=== PATIENT | female | born 1965 | race African-American/Black ===

== ENCOUNTER → 2017-10-29 16:35 | Outpatient (CLI) | payer BC ==
[~2017-10-29 16:35] MED LIST: MULTIPLE VITAMI1 TA1; ZESTORETIC 20/21 TAB PO
[2017-11-28 07:32] VITALS: BMI 31.1
== END | disposition home or self-care (01) ==
LOC: D.RAD 16:35
DX: R10.2 Pelvic and perineal pain (principal)

== ENCOUNTER 2017-11-28 07:09 | Day surgery (SDC) | payer BC ==
[2017-11-26 14:52] LABS: BASOPHILS 0.8 % (0-2); EOSINOPHILS 4.9 % (0-7); HEMATOCRIT 34.2 % (36.0-48.0); HEMOGLOBIN 11.3 g/dL (12-16); IMMATURE GRANULOCYTES 0.2 % (0-5); LYMPHOCYTES 42.8 % (15-50); MCH 29.7 pg (26.0-34.0); MONOCYTES 6.6 % (2-11); NEUTROPHILS 44.7 % (40-80); PLATELET COUNT 263 10x3/uL (130-400); RDW 13.1 % (11.5-14.5); WBC 5.9 10x3/uL (4.8-10.8)
[~2017-11-28] VITALS: Ht 165.1 cm; Wt 84.8 kg
--- NOTE | ~2017-11-28 | OP ---
PATIENT NAME: JAMES NEAL MEDICAL RECORD: [id number] :67 LOCATION:D.OPS ADMISSION DATE: SURGEON: EMMANUEL HAWKINS MD DATE OF OPERATION: 11/28/2017 PREOPERATIVE DIAGNOSIS: Menorrhagia/postmenopausal bleeding. POSTOPERATIVE DIAGNOSIS: Menorrhagia/postmenopausal bleeding. PROCEDURE: Hysteroscopy, dilation and curettage. SURGEON: Emmanuel Hawkins ESTIMATED BLOOD LOSS: Minimal. INTRAVENOUS FLUIDS: Per anesthesia record. HYSTEROSCOPIC FLUID LOSS: Less than 100 cc of 0.9 normal saline. SPECIMENS: Endometrial curettings. COMPLICATIONS: None apparent. FINDINGS: 1. Grossly normal-appearing endometrial cavity. 2. Grossly normal-appearing cervix and vagina. 3. Grossly normal-appearing external genitalia. PROCEDURE: The patient was taken to the operating room, where general anesthesia was achieved without any difficulty. The patient was prepped and draped in normal sterile fashion in the dorsal lithotomy position in the [facility]. The bladder was drained of approximately 50 cc of clear yellow urine and a Graves speculum was then placed in the vagina. The anterior lip of the cervix was then grasped with a single-tooth tenaculum on its anterior lip. The uterus was sounded and dilation was performed to approximately 6 mm. The hysteroscope was then introduced into the uterus without any difficulty. No evidence of perforation was noted. Survey of endometrial and endocervical canal was performed as well as uterine fundus and bilateral ostia were identified. No gross lesions were identified. Curettage was performed. Although the lining looked very atrophic, there was minimal return of tissue. Following dilation and curettage, the tenaculum was removed with good hemostasis noted. The patient tolerated the procedure well, was transported to postanesthesia recovery stable without incident. TRANSINT:[id number] Voice Confirmation ID: [id number] DOCUMENT ID: [id number] EMMANUEL HAWKINS MD at 1754 CC: [id number] DICTATION DATE: 12/22/171802 RAIL SIGNAL DESIGNER: 12/22/171947 [facility] 11/28/17 [place] [id number]
[2017-11-28 07:31] LABS: HCG URINE NEGATIVE (NEGATIVE)
[2017-11-28 07:32] VITALS: BP 110/74; Ht 165.1 cm; Wt 84.8 kg
== END 2017-11-28 12:50 | disposition home or self-care (01) ==
LOC: D.OPS 07:09 → D.PAN 07:30 → D.OPS 07:30
PROVIDERS: Obstetrics & Gynecology
DX: N92.0 Excessive and frequent menstruation with regular cycle (principal); I10 Essential (primary) hypertension; Z01.812 Encounter for preprocedural laboratory examination